=== PATIENT | female | born 1995 | race Caucasian/White ===

== ENCOUNTER 2017-12-23 17:53 | Emergency (ER) | payer MEDICAID ==
[~2017-12-23] VITALS: Ht 157.5 cm; Wt 105.2 kg
[2017-12-23 18:14] VITALS: BP 118/57; Ht 157.5 cm; Wt 105.2 kg
== END 2017-12-23 20:33 | disposition left against medical advice (07) ==
LOC: ED 17:53
DX: Z53.21 Procedure and treatment not carried out due to patient leaving prior to being seen by health care provider (principal)

== ENCOUNTER 2018-02-19 21:51 | Emergency (ER) | payer MEDICAID ==
[~2018-02-19] VITALS: Ht 160 cm; Wt 109.3 kg
[2018-02-19 21:58] VITALS: Ht 160 cm; Wt 109.3 kg
[2018-02-19 22:47] VITALS: BP 122/92
== END 2018-02-19 22:47 | disposition home or self-care (01) ==
LOC: ED 21:51
DX: S43.402A Unspecified sprain of left shoulder joint, initial encounter (principal); W22.8XXA Striking against or struck by other objects, initial encounter; Y93.89 Activity, other specified; Y92.89 Other specified places as the place of occurrence of the external cause; Y99.8 Other external cause status

== ENCOUNTER 2018-08-09 22:55 | Emergency (ER) | payer MEDICAID ==
[~2018-08-09] VITALS: Ht 160 cm; Wt 110.2 kg
[2018-08-09 23:40] VITALS: Ht 160 cm; Wt 110.2 kg
[2018-08-10 01:56] VITALS: BP 130/93
== END 2018-08-10 01:35 | disposition home or self-care (01) ==
LOC: ED 22:55
DX: S97.82XA Crushing injury of left foot, initial encounter (principal); X58.XXXA Exposure to other specified factors, initial encounter; Y93.89 Activity, other specified; Y92.89 Other specified places as the place of occurrence of the external cause; Y99.8 Other external cause status
CPT/HCPCS: Q0092

== ENCOUNTER 2019-10-13 21:45 | Emergency (ER) | payer MEDICAID, SELFPAY ==
[~2019-10-13] VITALS: Ht 157.5 cm; Wt 99.8 kg
[2019-10-13 22:48] VITALS: Ht 157.5 cm; Wt 99.8 kg
[2019-10-13 23:08] VITALS: BP 117/70
== END 2019-10-13 23:08 | disposition home or self-care (01) ==
LOC: ED 21:45
DX: R50.9 Fever, unspecified (principal); J02.9 Acute pharyngitis, unspecified; R43.8 Other disturbances of smell and taste; M79.10 Myalgia, unspecified site; R51 Headache; R06.02 Shortness of breath; E66.9 Obesity, unspecified; Z20.828 Contact with and (suspected) exposure to other viral communicable diseases
CPT/HCPCS: U0003-CS